=== PATIENT | male | born 1950 | race Hispanic/Latino ===

== ENCOUNTER 2025-03-01 15:17 | Emergency (ER) | payer OTHER, SELFPAY ==
[2025-03-01 15:20] VITALS: BP 138/96
[2025-03-01 15:44] LABS: Urine Character Clear (Clear)
[2025-03-01 15:49] LABS: Hematocrit 43.1 % (39.0-52.0); Hemoglobin 15.5 g/dL (13.0-18.0); Mean Corp Hgb Conc. 36.0 g/dL (33.0-37.0); Mean Corpuscular Volume 89.2 fL (80.0-94.0); Nucleated Red Blood Cells % 0 % (-); Platelet Count 126 10^3/uL (130-400); Red Cell Dist. Width 12.5 % (11.5-14.5)
[2025-03-01 15:53] LABS: Urine Squamous Cell 0-2 /LPF (Few)
[2025-03-01 15:55] LABS: Urine Red Blood Cell 0-2 /HPF (0-2); Urine White Cell 0-2 /HPF (0-5)
[2025-03-01 16:00] LABS: ALT (SGPT) 32 U/L (0-50); AST (SGOT) 31 U/L (17-59); Albumin 4.1 g/dl (3.5-5.0); Alkaline Phosphatase 79 U/L (38-126); Blood Urea Nitrogen 14 mg/dl (9-20); Calcium 8.7 mg/dl (8.4-10.2); Carbon Dioxide 27 mmol/L (22-30); Chloride 103 mmol/L (98-107); Glucose 155 mg/dl (70-99); Lipase 72 U/L (23-300); Potassium 4.7 mmol/L (3.5-5.1); Sodium 134 mmol/L (135-145); Total Protein 6.6 g/dl (6.3-8.2); eGFR > 60.00
--- NOTE | 2025-03-01 17:40 | ED.GENMED ---
History of Present Illness
General
Chief Complaint: Abdominal Pain
Source: patient and family (son)
Exam Limitations: none
Time Seen by Provider: 03/01/25 17:32
Nursing documentation reviewed up to this point in time: agreed with
History of Present Illness
History of Present Illness:
Patient to emergency department with complaint of lower abdominal pain. States pain started approximately 1 months ago. He has been seen 3 times by his primary care provider without any findings to explain his pain. He now reports difficulty
passing his urine. Pain in the lower abdomen is constant. There are no aggravating or alleviating factors. Reports nausea but no vomiting. Denies fever or chills. To ED at request of his PCP accompanied by son for evaluation
Past History
Past History
ED Past Medical History: GERD (gastritis), HTN, Hypercholesterolemia and Other (chapito day, years ago)
ED Past Surgical History: Cardiac (Cardiac catheter 2010-Chapito day) and Other (left inguinal hernia repair 1998)
Social History
Tobacco: Non-smoker
Alcohol: None
Drug: None
Personal:
Employment: Employed
Family History
Family History: Hypertension
Review of Systems
Review of Systems
Allergies reviewed?: Yes
All Other Systems: ROS reviewed and negative except as documented in HPI and ROS
Constitutional: Reports no symptoms
EENT: Reports no symptoms
Respiratory: Reports no symptoms
Cardiac: Reports no symptoms
ABD/GI: Reports abdominal pain (Bilateral lower abdominal pain)
: Reports difficulty voiding
Musculoskeletal: Reports no symptoms
Skin: Reports no symptoms
Neurological: Reports no symptoms
Psychiatric: Reports no symptoms
Phy Exam
General Physical Exam
General Presentation: well appearing and mild distress
General age: appears stated age
General Skin: warm and dry
General Habitus: normal
General Mental: alert
Cardiovascular Exam
Cardiovascular Exam: regular rate/rhythm and no edema
Pulmonary Exam
Pulmonary Exam: lungs clear and no respiratory distress
Gastrointestinal Exam
Gastrointestinal Exam: soft, no organomegaly, no pulsatile mass and non distended
Palpation: left upper quadrant: No tenderness, left lower quadrant: Moderate tenderness, right upper quadrant: No tenderness and right lower quadrant: Moderate tenderness
Musculoskeletal Exam
Musculoskeletal Exam: full ROM and neuro vasc intact
Skin Exam
Skin Exam: normal color, warm/dry and no rash
Psychiatric Exam
Psychiatric Exam: normal mood/affect
Course
Orders/Labs/Results
Orders:
Orders
03/01/25 15:30
CMP [Comprehensive Metabolic Panel] Urgent
Complete Blood Count/With Diff Urgent
Lipase Urgent
03/01/25 15:36
Urinalysis Reflex To Culture Urgent
Date Specimen was Collected: 03/01/25
Time Specimen was Collected: 15:24
Urine Microscopic Reflex Cult Urgent
Urine Culture Urgent
MARCOS Source: U
Specimen Description:
Date Specimen was Collected: 03/01/25
Time Specimen was Collected: 15:24
03/01/25 17:40
CT Abd/pel W Iv And Oral Contr Urgent
Comment:
Reason For Exam: lower abd. pain
Bladder Scan- Treatment ONCE
Iohexol [Omnipaque] See Protocol PO NOW STA
Abnormal Lab Results
03/01/25 03/01/25
15:30 15:36
WBC 3.1 L 10^3/uL
(4.8-10.8)
MCH 32.1 H pg
(27.0-31.0)
Plt Count 126 L 10^3/uL
(130-400)
MPV 11.4 H fL
(7.4-10.4)
Absolute Lymphs (auto) 1.0 L 10^3/uL
(1.2-3.4)
Sodium 134 L mmol/L
(135-145)
Glucose 155 H mg/dl
(70-99)
Ur Occult Blood Reflex 1+ A
(Negative)
Urine Bacteria (Reflex) Moderate A
(Negative)
Urine Albumin (Reflex) 1+ A
(Neg - Trace)
03/01/25 15:30
03/01/25 15:30
Vital Signs
Initial and Last Documented VS:
Initial Vital Signs
Temp Pulse Resp BP Pulse Ox
97.8 F 83 16 138/96 95
03/01/25 15:20 03/01/25 15:20 03/01/25 15:20 03/01/25 15:20 03/01/25 15:20
Last Documented Vital Signs
Temp Pulse Resp BP Pulse Ox
97.8 F 83 16 138/96 95
03/01/25 15:20 03/01/25 15:20 03/01/25 18:17 03/01/25 15:20 03/01/25 17:42
*Pulse Oximetry
SaO2: 95
Oxygen Mode of Delivery: Room air
Patient hypoxic: no
*Critical Care Note
Total Time (30-74mins, 75-104mins- exclusive of procedures): Not Applicable
Update Note
Update Note:
Patient to the emergency department with complaint of lower abdominal pain for the past month. He also notes frequent urination. He has been seen by his primary care provider 2-3 times for the same symptoms. Today he was advised to come to the
emergency department. Labs reviewed CBC and CMP without concerning findings. Urinalysis reviewed no evidence of UTI postvoid bladder scan [address] of abdomen without any findings to explain his symptoms. Reviewed labs and CT report with patient
(son as upper marker). He will be discharged home tonight and will resume follow-up with his family doctor. He was given the number for urology and son will call to schedule an appointment to discuss his urinary symptoms. Patient was given
instructions on signs and symptoms to return to the emergency department and he is agreeable to this plan
ED Attending Note
-
Portions of this chart may have been created with voice recognition software.� Occasional wrong word or��sound alike� substitutions may have occurred due to the inherent limitations of voice recognition software.
Discharge Plan
Departure
Patient Disposition: Home (Routine Discharge)
Date of Disposition: 03/01/25
Time of Disposition: 20:58
Patient with high blood pressure during this ER visit?: No
Condition: Good
Covid-19: Not Applicable
Discharge Problem:
Abdominal pain
Instructions: Abdominal Pain
Prescriptions:
No Action
propafenone 150 MG tablet
150 mg PO DAILY
irbesartan-hydrochlorothiazide 1 EACH tablet
1 ea PO DAILY
simvastatin 40 MG tablet
40 mg PO DAILY
aspirin 81 MG tablet,chewable
324 mg PO NOW
Patient Comments:
patient is not on aspirin at home patient given 324mg on11/12/at 0800
Vedipal Tab
50 - 450 mg PO DAILY
Patient Comments:
this drug in produced in [place] and is currently being developed. It is a venoconstriction drug
Referrals:
Enio White MD [Active, Urology] - Next open appointment
Boyd Calle DO [Family Provider, Family Practice] - Follow up in 2-3 days
Interventions
Interventions:
*Risk Screen - Suicide Last Done: 03/01/25 15:20
*General Assessment Last Done: 03/01/25 18:17
*Neglect/Abuse Screening Last Done: 03/01/25 15:20
*ED- Fall Risk Assessment Last Done: 03/01/25 18:17
*ED COVID-19 Vaccine History Last Done: 03/01/25 18:17
*ED Influenza Vaccine History Last Done: 03/01/25 18:17
PF-Fhcmww-Dqizxdjefy Assessment Last Done: 03/01/25 19:01
Discharge Date and Time
Print Language: ITALIAN
[2025-03-01] MEDS: OMNIPAQUE 50 ML PO (18:16)
[2025-03-01 21:20] VITALS: BP 141/79
== END 2025-03-01 21:21 | disposition home or self-care (01) ==
LOC: EMR 15:17
PROVIDERS: Student in an Organized Health Care Education/Training Program; EMERGENCY PHYSICIAN Emergency Medicine; FAMILY PHYSICIAN Family Medicine
DX: R10.30 Lower abdominal pain, unspecified (principal); R35.0 Frequency of micturition; R11.0 Nausea; I10 Essential (primary) hypertension; E78.00 Pure hypercholesterolemia, unspecified
CPT/HCPCS: 99284; 74177; 80053; 81003; 81015; 83690; 85025; 87086; Q9967